=== PATIENT | male | born 1970 | race Caucasian/White ===

== ENCOUNTER → 2020-06-14 | Outpatient (CLI) | payer OTHER ==
[~2020-06-14] MED LIST: ADMELOG SO100 UNIT/1 SC; ALDACTONE 25MG25 MG PO; AMOX TR-K CLV1 EAC4 PO; ASPIRIN CHEWABL81 MG PO; ASPIRIN EC81 MG PO; ATORVASTATIN CA20 MG PO; BASAGLAR K100 UNIT/1 SC; CLOPIDOGREL75 MG PO; COZAAR 25MG TAB25 MG PO; FISH OIL 1,0001 EAC4 PO; GABAPENTIN400 MG PO; HUMALOG 10100 UNITS/ SC; HYDROCODON-ACE1 EAC1 PO; IMDUR ER TAB 3030 MG PO; LANTUS INS100 UTS/M1 SC; LEVOFLOXACIN750 MG PO; LEVOTHYROXINE75 MCG PO; LIPITOR40 MG PO; LISINOPRIL40 MG PO; LOPRESSOR 25 MG25 MG PO; LOPRESSOR50 MG PO; PANTOPRAZOLE SO20 MG PO; ROCEPHIN 1 GM AD1 GM IV; SYNTHROID150 MCG PO; VANCOMYCIN; VITAMIN D22000 UNIT PO; VITAMIN E100 UNI2 PO; ZESTRIL40 MG PO; ZOCOR40 MG PO; heparin drip
== END ==
LOC: HEART 5 11:53
DX: I25.5 Ischemic cardiomyopathy (principal); I42.0 Dilated cardiomyopathy; I50.22 Chronic systolic (congestive) heart failure; I08.1 Rheumatic disorders of both mitral and tricuspid valves; R93.1 Abnormal findings on diagnostic imaging of heart and coronary circulation
CPT/HCPCS: 93306

== ENCOUNTER → 2020-06-23 | Outpatient (CLI) | payer OTHER ==
[2020-06-23 14:44] LABS: HEMOGLOBIN 13.3 gm/dl (14.0-17.5); RED BLOOD COUNT 4.38 M/UL (4.20-5.50); WHITE BLOOD COUNT 10.2 K/UL (4.5-11.0)
[2020-06-23 15:06] LABS: BUN/CREATININE RATIO 21 (0-10)
== END ==
LOC: LAB 13:33
PROVIDERS: Internal Medicine Cardiovascular Disease
DX: I11.0 Hypertensive heart disease with heart failure (principal); I50.22 Chronic systolic (congestive) heart failure; I25.10 Atherosclerotic heart disease of native coronary artery without angina pectoris; I25.5 Ischemic cardiomyopathy; I44.7 Left bundle-branch block, unspecified; R91.8 Other nonspecific abnormal finding of lung field
CPT/HCPCS: 36415; 71046; 80048; 85025

== ENCOUNTER 2020-06-27 06:27 | Outpatient (CLI) | payer OTHER ==
[~2020-06-27] VITALS: Ht 167.6 cm; Wt 86.7 kg
[~2020-06-27 06:27] MED LIST changes: -AMOX TR-K CLV1 EAC4 PO; -ASPIRIN EC81 MG PO; -HYDROCODON-ACE1 EAC1 PO; -LEVOFLOXACIN750 MG PO; -LEVOTHYROXINE75 MCG PO; -PANTOPRAZOLE SO20 MG PO
[2020-06-27] MEDS ORDERED: PANTOPRAZOLE SO20 MG PO (07:13)
[2020-06-27] MEDS ORDERED: HYDROCODON-ACE1 EAC1 PO (11:12)
[2020-06-27] MEDS ORDERED: LEVOFLOXACIN750 MG PO (11:17)
== END 2020-06-28 10:50 | disposition home or self-care (01) ==
LOC: CATH 06:27 → PROG CARE 13:45 → CATH 06-28 10:50
DX: I42.0 Dilated cardiomyopathy (principal); I25.5 Ischemic cardiomyopathy; I11.0 Hypertensive heart disease with heart failure; I50.22 Chronic systolic (congestive) heart failure; I44.7 Left bundle-branch block, unspecified; I25.10 Atherosclerotic heart disease of native coronary artery without angina pectoris; E11.9 Type 2 diabetes mellitus without complications; J43.9 Emphysema, unspecified; E78.5 Hyperlipidemia, unspecified; I25.2 Old myocardial infarction; K21.9 Gastro-esophageal reflux disease without esophagitis; M19.90 Unspecified osteoarthritis, unspecified site; M54.9 Dorsalgia, unspecified; G89.29 Other chronic pain; E78.00 Pure hypercholesterolemia, unspecified; E03.9 Hypothyroidism, unspecified; Z95.1 Presence of aortocoronary bypass graft; Z87.891 Personal history of nicotine dependence
CPT/HCPCS: 33225; 33249; 71045; 82962; 93005; 93641; 99152; 99153; C1769; C1777; C1882; C1898; C1900; J1200; J1644; J2250; J2270; J3010; J3370; J7040; J7050; J7070; Q9965

== ENCOUNTER 2020-11-09 11:17 | Inpatient (IN) | payer OTHER ==
[~2020-11-09] VITALS: Ht 167.6 cm; Wt 83.9 kg
[~2020-11-09 11:17] MED LIST changes: +HYDROCODON-ACE1 EAC1 PO; +LEVOFLOXACIN750 MG PO; +PANTOPRAZOLE SO20 MG PO
[2020-11-09 15:20] LABS: HEMOGLOBIN 13.6 gm/dl (14.0-17.5); RED BLOOD COUNT 4.51 M/UL (4.20-5.50); WHITE BLOOD COUNT 8.1 K/UL (4.5-11.0)
[2020-11-09 15:58] LABS: BUN/CREATININE RATIO 17 (0-10)
[2020-11-10 03:14] LABS: HEMOGLOBIN 12.6 gm/dl (14.0-17.5); RED BLOOD COUNT 4.19 M/UL (4.20-5.50); WHITE BLOOD COUNT 7.1 K/UL (4.5-11.0)
[2020-11-10 03:33] LABS: BUN/CREATININE RATIO 15 (0-10)
[2020-11-10] MEDS ORDERED: LEVOTHYROXINE75 MCG PO (08:51)
[2020-11-11] MEDS ORDERED: AMOX TR-K CLV1 EAC4 PO (10:24)
[2020-11-11] MEDS ORDERED: ASPIRIN EC81 MG PO (10:24)
== END 2020-11-11 10:58 | disposition home or self-care (01) | DRG 69 ==
LOC: ER1 11:17 → CDU 18:01 → PROG CARE 11-10 14:02
PROVIDERS: Emergency Medicine; ADMIT Internal Medicine
PROC: B24BZZ4 Ultrasonography of Heart with Aorta, Transesophageal (ICD-10-PCS; principal; 2020-11-10)
DX: G45.9 Transient cerebral ischemic attack, unspecified (principal); I50.22 Chronic systolic (congestive) heart failure; I11.0 Hypertensive heart disease with heart failure; I65.22 Occlusion and stenosis of left carotid artery; J44.9 Chronic obstructive pulmonary disease, unspecified; Z20.822 Contact with and (suspected) exposure to COVID-19; F17.210 Nicotine dependence, cigarettes, uncomplicated; E78.5 Hyperlipidemia, unspecified; R26.81 Unsteadiness on feet; R47.81 Slurred speech; R77.8 Other specified abnormalities of plasma proteins; I25.5 Ischemic cardiomyopathy; I08.1 Rheumatic disorders of both mitral and tricuspid valves; F17.290 Nicotine dependence, other tobacco product, uncomplicated; E11.40 Type 2 diabetes mellitus with diabetic neuropathy, unspecified; J32.0 Chronic maxillary sinusitis; I25.10 Atherosclerotic heart disease of native coronary artery without angina pectoris; Z95.1 Presence of aortocoronary bypass graft; Z95.5 Presence of coronary angioplasty implant and graft; Z79.4 Long term (current) use of insulin; Z95.810 Presence of automatic (implantable) cardiac defibrillator; Z79.82 Long term (current) use of aspirin; Z79.01 Long term (current) use of anticoagulants; I25.2 Old myocardial infarction; Z82.49 Family history of ischemic heart disease and other diseases of the circulatory system; Z83.3 Family history of diabetes mellitus; Z88.6 Allergy status to analgesic agent
CPT/HCPCS: ECHO; 36415; 70450; 70496; 71045; 80048; 80053; 81001; 82550; 82553; 82962; 83690; 84484; 85025; 85730; 93005; 93306; 93880; 96374; 96375; 99291; J1644; J1885; J2270; J2405; Q9967; U0002

== ENCOUNTER → 2020-11-20 | Outpatient (CLI) | payer OTHER ==
[~2020-11-20] MED LIST changes: +AMOX TR-K CLV1 EAC4 PO; +ASPIRIN EC81 MG PO; +LEVOTHYROXINE75 MCG PO
[2020-11-20 13:13] LABS: HEMOGLOBIN 12.7 gm/dl (14.0-17.5); RED BLOOD COUNT 4.19 M/UL (4.20-5.50); WHITE BLOOD COUNT 6.2 K/UL (4.5-11.0)
[2020-11-20 13:34] LABS: BUN/CREATININE RATIO 17 (0-10)
== END ==
LOC: LAB 12:22
PROVIDERS: Nurse Practitioner Family
DX: R07.9 Chest pain, unspecified (principal); I10 Essential (primary) hypertension
CPT/HCPCS: 36415; 71046; 80053; 80061; 83036; 84443; 85007; 85027; 93005